=== PATIENT | female | born 2000 | race Two or more races ===

== ENCOUNTER 2024-06-03 16:35 | Outpatient (CLI) | payer OTHER ==
[2024-06-04] MEDS ORDERED: PRENATAL CAPLE1 EAC1 PO (04:41)
== END 2024-06-03 16:55 | disposition home or self-care (01) ==
LOC: NST 16:35
PROVIDERS: ATTEND Obstetrics & Gynecology Gynecology
DX: Z34.83 Encounter for supervision of other normal pregnancy, third trimester (principal)

== ENCOUNTER 2024-06-04 04:38 | Inpatient (IN) | payer OTHER ==
[~2024-06-04] VITALS: Ht 167.6 cm; Wt 91.2 kg
[2024-06-04 04:35] VITALS: BP 132/87
[2024-06-04] MEDS ORDERED: PRENATAL CAPLE1 EAC1 PO (04:41)
[2024-06-04] MEDS ORDERED: RINGERS SOLUTION,LACTATED 1,000 ML IV SCH (04:45)
[2024-06-04] MEDS ORDERED: ERYTHROMYCIN BASE OPHT 1GM EACH TUBE OP ONE (04:55)
[2024-06-04] MEDS ORDERED: OXYTOCIN 20 UNITS/1000ML RL PIGGYBAG IV ONE (04:55)
[2024-06-04] MEDS ORDERED: LIDOCAINE HCL 1% 10ML VIAL ONE (04:55)
[2024-06-04] MEDS ORDERED: CHLORHEXIDINE GLUCONATE 120 ML BOTTLE TOP ONE (04:55)
[2024-06-04 06:35] LABS: HEMATOCRIT 35.5 % (36.0-45.00); HEMOGLOBIN 11.5 g/dL (12.0-15.00); MEAN CELL VOLUME 70.5 fL (80.00-100.00); MEAN CORPUSCULAR HEMOGLOBIN 22.8 pg (27.00-32.0); MEAN CORPUSCULAR HGB CONC 32.3 g/dl (32.0-36.0); PLATELET COUNT 368 K/uL (150-450); RED BLOOD COUNT 5.04 M/uL (4.00-6.00); RED CELL DISTRIBUTION WIDTH 15.9 % (11.5-14.5)
[2024-06-04] MEDS ORDERED: CHLORHEXIDINE GLUCONATE 120 ML BOTTLE TOP SCH (06:45)
[2024-06-04] MEDS ORDERED: OXYTOCIN 1,000 ML IV ONE (06:45)
[2024-06-04 07:01] LABS: INR 0.94; PARTIAL THROMBOPLASTIN TIME 27.1 SECONDS (22.0-34.0); PROTHROMBIN TIME 10.3 SECONDS (9.0-11.5)
[2024-06-04 07:08] LABS: ALBUMIN 2.8 gm/dL (3.4-5.0); BILIRUBIN TOTAL 0.49 mg/dL (0.3-1.2); CALCIUM 8.8 mg/dL (8.5-10.1); CREATININE SERUM 0.55 mg/dL (0.55-1.02); GFR 135.79; GLOBULINA 3.5 G/DL (2.4-3.5); POTASSIUM 3.83 mEq/L (3.5-5.1); TOTAL PROTEIN 6.3 gm/dL (6.4-8.2)
[2024-06-04 07:15] VITALS: BP 120/69
[2024-06-04] MEDS ORDERED: DOCUSATE SODIUM 100MG CAP PO SCH (09:00)
[2024-06-04] MEDS ORDERED: PNV,CALCIUM 72/IRON/FOLIC ACID 1 TAB TABLET PO SCH (09:00)
[2024-06-04] MEDS ORDERED: ACETAMINOPHEN 500 MG GEL..CAP PO PRN (16:00)
[2024-06-04 16:05] VITALS: BP 114/78
[2024-06-05] VITALS: BP 107/64
[2024-06-05 07:42] VITALS: BP 103/67
[2024-06-05 07:45] LABS: MEAN CORPUSCULAR HEMOGLOBIN 23.4 pg (27.00-32.0); MEAN CORPUSCULAR HGB CONC 33.5 g/dl (32.0-36.0); PLATELET COUNT 312 K/uL (150-450); RED BLOOD COUNT 4.29 M/uL (4.00-6.00); RED CELL DISTRIBUTION WIDTH 15.9 % (11.5-14.5)
[2024-06-05 14:56] VITALS: BP 116/78
[2024-06-06 01:03] VITALS: BP 117/80
[2024-06-06 08:20] VITALS: BP 118/79
== END 2024-06-06 11:38 | disposition home or self-care (01) | DRG 807 ==
LOC: LDR 04:38 → OB/GYN 04:38
PROVIDERS: Obstetrics & Gynecology Gynecology; ADMIT Obstetrics & Gynecology; ATTEND Obstetrics & Gynecology
PROC: 10E0XZZ Delivery of Products of Conception, External Approach (ICD-10-PCS; principal; 2024-06-04)
PROC: 0KQM0ZZ Repair Perineum Muscle, Open Approach (ICD-10-PCS; 2024-06-04)
PROC: 4A1HXCZ Monitoring of Products of Conception, Cardiac Rate, External Approach (ICD-10-PCS; 2024-06-04)
DX: O70.1 Second degree perineal laceration during delivery (principal); Z37.0 Single live birth; Z3A.39 39 weeks gestation of pregnancy